=== PATIENT | female | born 1985 | race Caucasian/White ===

== ENCOUNTER 2024-09-09 13:04 | Emergency (ER) | payer BC, SELFPAY ==
[2024-09-09] VITALS (11 sets, daily range): BP systolic 103–129; BP diastolic 69–83; PULSE 61–80; RESP 5–17; TEMP 37.3; O2SAT 95–100; BMI 23.9
--- OUTSIDE RECORDS SUMMARY | 2024-09-09 13:06 | XMS_ITS | Clinical Summary ---
Author Organization [facility] Address [address] [place] [address]. [place] [address] Care Team Providers Care Director Index Name Role Phone Neha Major MD Primary Care Provider [phone] Allergies Active Allergy Reactions Criticality Noted Date Comments Doxycycline Anaphylaxis High 01/17/2016 Shellfish Allergy Anaphylaxis,Itching High 6 Shellfish-Derived Products Anaphylaxis,Itching High 01/27/2016 Medications ferrous gluconate (FERGON) 324 (38 FE) MG tabletIndications: S/P primary low transverse Take 1 tablet (324 mg) by mouth daily (with breakfast) 100 tablet 1 8 Active Vit-DSS-Fe Fum-FA ( 19) 29-1 MG TABSIndications:S/ P primary low transverse Take 1 tablet by mouth daily 100 tablet 1 8 Active norethindrone (MICRONOR) 0.35 MG per tabletIndications: Encounter for initial prescription of contraceptive pills Take 1 tablet (0.35 mg) by mouth daily 28 tablet 2 8 Active Active Problems Problem Noted Date Diagnosed Date 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 Social History Tobacco Use Types Packs/Day Years Used Date Smoking Tobacco: Never Smokeless Tobacco: Never Alcohol Use Standard Drinks/Week Comments No 0 (1 standard drink = 0.6 oz pur e alcohol) PHQ-2 Answer Date Recorded PHQ-2 Score 1 05/30/2018 Adolescent Education Answer Date Record ed Getting School Help Needed Not on file 02/10 Comments No Sex and Gender Information Value Date Recorded Sex Assigned at Not on file Legal Sex Female 6:36 AM CDT Gender Identity Not on file Sexual Orientation Not on file 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 Not on file Not on file Last Filed Vital Signs Vital Sign Reading Time Taken Comments Blood Pressure 104/72 08/23/2017 9:40 AM CDT Pulse 76 01/17/2016 7:50 PM CDT Temperature 37.2 C (99 F) 07/16/2017 1:21 PM FIELD SPECIALIST Respiratory Rate 18 07/16/2017 10:51 AM FIELD SPECIALIST Oxygen Saturation 100% 01/17/2016 7:50 PM CDT Inhaled Oxygen Concentration - - Weight 62.1 kg (137 lb) 08/23/2017 9:40 AM CDT Height 160 cm (5' 3) 08/23/2017 9:40 AM CDT Body Mass Index 24.27 08/23/2017 9:40 AM CDT Plan of Treatment Not on file Insurance INDIVIDUAL INDIVIDUAL Care Teams Director Index Relationship Specialty Start Date End Date Neha Major MD [address] [place] [address] PCP - General program or project administrator 07/13/17
--- OUTSIDE RECORDS SUMMARY | 2024-09-09 13:06 | XMS_ITS | Encounter Summary ---
Author Organization [facility] Address [address] [place] [address]. [place] [address] Care Team Providers Care Railway Shunter Name Role Phone Skylar Salomon CNP Primary Care Provider [phone] Neha Major MD Primary Care Provider [phone] Encounter Details Date Type Department Care Team (Late st Contact Info) Description 03/01/2017 PRE VISIT [facility] [address] [place] [id number] Dorota Carcamo, LEAH Social History Tobacco Use Types Packs/Day Years Used Date Smoking Tobacco: Never Alcohol Use Standard Drinks/Week Comments Not Asked 0 (1 standard drink = 0.6 oz pur e alcohol) Comments Yes Sex and Gender Information Value Date Recorded Sex Assigned at Not on file Legal Sex Female 6:36 AM CDT Gender Identity Not on file Sexual Orientation Not on file documented as of this encounter Plan of Treatment Not on file documented as of this encounter Visit Diagnoses Not on filedocumented in this encounter Care Teams Railway Shunter Relationship Specialty Start Date End Date Skylar Salomon CNP PCP - General 01/17/16 07/12/17 Neha Major MD [address] [place] [address] PCP - General culinary manager 07/13/17 documented as of this encounter
--- OUTSIDE RECORDS SUMMARY | 2024-09-09 13:07 | XMS_ITS | Clinical Summary ---
Author Organization [facility] Address [address] [place] [address] Care Team Providers Care Glove Turner And Former Automatic Name Role Phone Skylar Salomon Diana ABREU, EMBROIDERY WORKER Primary Care Provider Source Comments You are receiving this document as you are listed as the primary care provider,follow-up provider, or the patient has been referred to you for consultation.This is in compliance with the Medicare and[facility] EHR Incentive Program,which states Providers who transition their patient to another setting of careor provider of care or refers their patient to another provider of care shouldprovide summary care record for each transition of care or referral. [employer] Allergies Active Allergy Reactions Criticality Noted Date Comments Doxycycline Breathing Difficulty High 10/16/2015 Shellfish Allergy Anaphylaxis,Itching High 6 Medications ALBUterol sulfate HFA 108 (90 BASE) MCG/ACT inhaler Inhale 2 Puffs as needed for Wheezing (Inhale 2 puffs as needed for Wheezing.). Reported on 06/15/2016 10/16/2015 Active fluticasone (FLONASE) 50 MCG/ACT nasal solutionIndicat ions:Hyperprola ctinemia (HRC),PCOS (polycystic ovarian syndrome) (HRC) 1 Etta. 06/08/2016 Act sinan spironolactone (ALDACTONE) 50 MG tabletIndicatio ns:PCOS (polycystic ovarian syndrome) (HRC),Hyperprol actinemia (HRC) Take 1 Tab by mouth daily. 90 Tab 3 06/21/2016 Active Norgestimate-Et h Estradiol (SPRINTEC 28) 0.25-35 MG-MCG tablet Take 1 Tab by mouth daily. 90 Tab 3 06/22/2016 Active Active Problems Problem Noted Date Diagnosed Date Hyperprolactinemia 04/07/2016 PCOS (polycystic ovarian syndrome) 04/07/2016 Family History Medical History Relation Name Comments Alzheimer's Maternal Grandfather Diabetes Maternal Grandmother High Cholesterol Maternal Grandmother Cancer Paternal Grandfather Spont Abortions Sister 1 Relation Name Status Comments Father Alive Mother Alive Brother 1 Alive Brother 2 Alive Maternal Grandfather Alive Maternal Grandmother Alive Paternal Grandfather Paternal Grandmother Alive Sister 1 Alive Sister 2 Alive Social History Tobacco Use Types Packs/Day Years Used Date Smoking Tobacco: Never Smokeless Tobacco: Never Alcohol Use Standard Drinks/Week Comments Yes 2 (1 standard drink = 0.6 oz pur e alcohol) Comments No Sex and Gender Information Value Date Recorded Sex Assigned at Not on file Legal Sex Female 1:06 PM CDT Gender Identity Not on file Sexual Orientation Not on file 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 Not on file Not on file Last Filed Vital Signs Vital Sign Reading Time Taken Comments Blood Pressure 116/78 06/15/2016 11:12 AM CASINO ASSISTANT MANAGER Pulse 80 06/15/2016 11:12 AM CASINO ASSISTANT MANAGER Temperature 36.8 C (98.3 F) 04/06/2016 8:27 AM CASINO ASSISTANT MANAGER Respiratory Rate 18 04/06/2016 8:27 AM CASINO ASSISTANT MANAGER Oxygen Saturation 96% 04/06/2016 8:27 AM CASINO ASSISTANT MANAGER Inhaled Oxygen Concentration - - Weight 54.5 kg (120 lb 3.2 oz) 06/15/2016 11:12 AM CASINO ASSISTANT MANAGER Height 160 cm (5' 3) 06/15/2016 11:12 AM CASINO ASSISTANT MANAGER Body Mass Index 21.29 06/15/2016 11:12 AM CASINO ASSISTANT MANAGER Plan of Treatment Health Maintenance Due Date Last Done Comments Hep C Screening (Preventive Services) 1985 Adult Preventive Visit 01/20/2004 DTaP/Tdap/Td Vaccine (1 - Tdap) 2005 HepB Vaccine (1) 2005 Cervical Cancer Screening 11/17/2018 11/18/2015 COVID-19 Vaccine (1 - 2023-2 5 season) 2024 Influenza Vaccine (#1) 2024 Zoster/Shingles Vaccine (1 of 2) 01/20/2036 HIV Screening (Preventive Services) Completed 10/09/2019 HPV Vaccine Aged Out No longer eligi ble based on patient's age to complete this topic HepA Vaccine Aged Out No longer eligi ble based on patient's age to complete this topic Hib Vaccine Aged Out No longer eligi ble based on patient's age to complete this topic IPV (Polio) Vaccine Aged Out No longe r eligible based on patient's age to complete this topic MCV4 Vaccine Aged Out No longer eligi ble based on patient's age to complete this topic Meningococcal B Vaccine Aged Out No l onger eligible based on patient's age to complete this topic Pneumococcal Vaccine Aged Out No long er eligible based on patient's age to complete this topic Procedures Procedure Name Priority Date/Time Associated Diagnosis Comments ANATOMICAL PATH LIQUID BASED Routine 11/18/2015 11:07 AM CDT from Last 3 Months or Most Recently Relevant to Health Maintenance Results * Pap Smear (11/18/2015 11:07 AM CDT) 11/18/2015 11:0 7 AM CDT Narrative HP CONVERSION - 11/20/2015 5:34 PM CDT FINAL GYNECOLOGICAL CYTOLOGY REPORT Pathology #: [id number] Date Obtained: 11/18/2015 Date Received: 11/19/2015 INTERPRETATION/RESULTS: Negative for Intraepithelial Lesion or Malignancy. SPECIMEN ADEQUACY: Satisfactory for Evaluation. Endocervical cells/transformation zone component present. Verified on 11/20/2015 by MINIE BACCAM, CT(ASCP) (electronic signature) CLINICAL NOTES: Abnormal bleeding: No, LMP: 10/29/15, Menstrual status: None Apply, Current form of therapy: None apply LIQUID BASED PAP SMEAR SPECIMEN TYPE: ROUTINE CERVICAL PAP TEST PLEASE NOTE: The pap smear is a screening test designed to aid in the detection of cervical cancer and its precursor lesions. It is not a diagnostic procedure and should not be used as the sole means of detecting cervical cancer. Both false-positive and false-negative reports may occur. Performed at [facility], [address] [place] [id number] Lachelle Stearns MD LAB_1 Final Re sult HP CONVERSION from Last 3 Months or Most Recently Relevant to Health Maintenance Insurance HP FULLY INSURED * Guarantor: Cleo Alegre Account Type Relation to Patient Date of Phone Billing Address Personal/Family Self 1985 [id number] [place] [address] [employer] Care Teams Glove Turner And Former Automatic Relationship Specialty Start Date End Date Skylar Salomon, ROUGH PATCHER, EMBROIDERY WORKER [id number] [address] [place] [address] PCP - General 10/29/15
--- OUTSIDE RECORDS SUMMARY | 2024-09-09 13:07 | XMS_ITS | Clinical Summary ---
Author Organization [employer] [facility] [employer] Address [address] [place] [id number] Care Team Providers Care Site Physician Name Role Phone Anisa Zaldivar MD Primary Care Provider Allergies Active Allergy Reactions Criticality Noted Date Comments Blood-Group Specific Substance Other - Describe In Comment Field 06/02/2020 Patient has Probable Passive D, Blood product orders may be delayed. Draw one red top and 2 purple top tubes for all Type and Screen/Type and Crossmatch orders. Doxycycline Shortness Of Breath Low 03/09/2015 Shellfish Containing Products Anaphylaxis,Itching High 01/27/2016 Medications Blood Pressure MonitorIndicatio ns:Pre-eclampsia in period (HC) Take blood pressure twice daily. Call if your blood pressure is above 150/100 (either number). 1 Device 06/09/19 21 Active tretinoin (RETIN-A) 0.025 % 0.025 % creamIndications :Acne vulgaris Apply topically to affected area(s) at bedtime. 135 g 3 06/01/19 24 Active albuterol HFA (PRO-AIR; VENTOLIN; PROVENTIL) 90 mcg/actuation inhalerIndicatio ns:Mild intermittent asthma without complication (HC) Inhale 2 Puffs by mouth every 4 hours if needed for Shortness Of Breath or Wheezing. 2 Each 1 01/12/20 24 Active SUMAtriptan (IMITREX) 50 mg tabletIndication s:Migraine without status migrainosus, not intractable, unspecified migraine type Take 1 Tablet (50 mg) by mouth 2 times daily if needed for Migraine. Give at minimum 2hrs apart. Max Dose: 200mg per 24hrs. 10 Tablet 2 01/12/20 24 Active lidocaine/hydroc ortisone ac (lidocaine HCl-hydrocortiso n ac) 3 %-2.5 % (7 gram) gelIndications:A nal fissure Insert rectally two times daily. 14 g 01/12/20 24 Active docosahexaenoic acid/epa (FISH OIL ORAL) Take by mouth once daily. Active ferrous sulfate (IRON ORAL) Take by mouth once daily. Active medication order composer Take by mouth once daily. Vit D Active cyanocobalamin, vitamin B-12, (VITAMIN B-12 ORAL) Take by mouth once daily. Active MELATONIN ORAL Take by mouth once daily. 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 Max acetaminophen dose: 4000mg in 24 hrs. 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 Anxiety 03/30/2019 Mild intermittent asthma without complication Resolved Problems Problem Noted Date Diagnosed Date Resolved Date Endometritis following delivery 06/03/2020 01/12/2024 delivery delivered 06/02/2020 01/12/2024 [facility] Supervision of high-risk 01/06/2020 01/12/2024 Overview (01/06/2020): MPP CONSULTATION ON 01/09/20 REASON FOR CONSULT: Diagnosis pituitary adenoma What would you like to discuss or review? management and level 2 ultrasound Comprehensive Perinatology Services:(select all that apply) testing/delivery recommendations Consult on risks/management TODAY'S APPOINTMENT: MD Consultation & L2 ultrasound exam PRIMARY DIAGNOSIS: 34 y.o. Estimated Date of Delivery: 06/02/20 Micro-pituitary Adenoma (see brain MRI below)--dx by amenorrhea, infertility, elevated prolactin and brain MRI. No problems with first child H/O C/S for placenta previa at 91a8w--6/2018. (baby went to NICU for respiratory issues) Pt desires TOLAC, will need to transfer to provider that does H/O viral pericarditis during first (can't find records) Anxiety (on Zoloft) BMI = 24 LAST GROWTH: Next: 01/09/20 10/16/19 (6w3d) REFERRING PHYSICIAN/PHONE/LAST UPDATE: Dr. Anisa Zaldivar, [facility] [phone] Primary MD approves scheduling of recommended ultrasounds/testing: Yes SPECIALISTS/CONSULTS: Tailings Worker: Dr. Kylah Weber, [facility] 05/2016 Include: Specialty MD Clinic Name Phone# [place] and ADD TO TREATMENT TEAM CARE COORDINATION: GENETICS: none PROCEDURES: Brain MRI done 12/02/15 (in Care Everywhere): Tiny focal area of decreased enhancement near the pars intermedia may reflect a tiny pars intermedia cyst or mild pituitary glandular heterogeneity. A tiny microadenoma could have this appearance but is considered less likely. PERTINENT LABS: Labs reviewed? Yes Normal? Yes A Neg PERTINENT MEDS: albuterol, folic acid, PNV, zoloft Preferred delivery location: [place] (wants to do TOLAC) PLAN OF CARE: 11/13/2019 01/12/2024 Overview (02/26/2020): Estimated Date of Delivery: 06/02/20 Patient's last menstrual period was 08/27/2019 (exact date). Last Tdap- 05/30/2017 Last Flu vaccine- 02/05/2019 Glucose (GTT) result- Component Latest Ref Rng & Units 02/25/2020 GLUCOSE,GESTATIONAL 65 - 139 mg/dL 98 Component Latest Ref Rng & Units 02/25/2020 HEMOGLOBIN 12.0 - 16.0 g/dL 12.3 Component Latest Ref Rng & Units 02/25/2020 ANTIBODY SCREEN Negative Negative SPECIMEN EXPIRATION DATE/TIME 02/28/20 23:59 TREPONEMA PALLIDUM Negative Negative Allergies Allergen Reactions Shellfish Containing Products Anaphylaxis and Itching Doxycycline Shortness Of Breath OB History Para Term AB Living 3 1 0 1 1 1 SAB TAB Ectopic Multiple Live Births 1 0 0 0 1 # Outcome Date GA Lbr Ritesh/2nd Weight Sex Delivery Anes PTL Lv 3 Current 2 M CS-LTranv Complications: Placenta Previa 1 SAB 7w0d N Create lab flowsheet for OB labs- Component Latest Ref Rng & Units 10/09/2019 10/09/2019 10/09/2019 8:54 AM 8:54 AM 8:54 AM ANTIBODY SCREEN Negative Negative SPECIMEN EXPIRATION DATE/TIME 10/12/19 23:59 CHLAMYDIA PROBE N GONORRHOEAE PROBE HEMOGLOBIN 12.0 - 16.0 g/dL 12.9 MCV 80 - 100 fL 84 PLATELET COUNT 140 - 440 thou/cu mm 164 MPV 6.5 - 11.0 fL 10.5 RUBELLA IGG ANTIBODY Positive 3.23 HIV-1/HIV-2 ANTIBODY Non-Reactive Non-Reactive HEPATITIS C ANTIBODY Non-Reactive Non-Reactive TREPONEMA PALLIDUM Negative Negative HBSAG Nonreactive Nonreactive ABORH A Rh Negative Component Latest Ref Rng & Units 10/09/2019 8:55 AM ANTIBODY SCREEN Negative SPECIMEN EXPIRATION DATE/TIME CHLAMYDIA PROBE Negative N GONORRHOEAE PROBE Negative HEMOGLOBIN 12.0 - 16.0 g/dL MCV 80 - 100 fL PLATELET COUNT 140 - 440 thou/cu mm MPV 6.5 - 11.0 fL RUBELLA IGG ANTIBODY HIV-1/HIV-2 ANTIBODY Non-Reactive HEPATITIS C ANTIBODY Non-Reactive TREPONEMA PALLIDUM Negative HBSAG Nonreactive ABORH Past Medical History: . Date Asthma Female infertility Irregular menstrual cycle PCOS (polycystic ovarian syndrome) Pericarditis during Pituitary adenoma (HC) Placenta previa hemorrhage delivery at 36 weeks by for complete placenta previa Varicella Past Surgical History: . Laterality Date SECTION HERNIA REPAIR hernis repair N/A 02/06/2016 umbilical hernia wisdom teeth removal 2003 No data on file. Problems (from 10/09/19 to present) No problems associated with this episode. Cinthia Todd, [facility].....11/13/2019 8:43 AM Supervision of other normal 10/09/2019 01/12/2024 Overview (05/21/2020): Provider: Ronaldo Kingsley MD. Transferred at [address] Anisa Zaldivar [facility] due to wanting TOLAC Grant, Son Rogerio (Jun 2017) Hx of at 36 weeks for previa. Traumatic experience with child transferred to NICU from [facility] and her being without her baby or partner. Had a delayed hemorrhage - did not need blood transfusion but did have a low hgb. hx of pituitary microadenoma and high PRL- saw MPP, no change to management Hx of viral pericarditis with 1st . Saw MPP for consult this . Rh negative. Rhogam given 03/19/2020 ( likely Rh negative too) Anxiety: on Zoloft Boy - wanting circ Peds - Dr. Dominga Johns Wanting IUD Pain management: Open to options. Ok with an epidural May want something for anxiety in labor- discuss hydroxyzine TOLAC consult with Dr. Freeman. If not delivered by 40 weeks will plan repeat c- section. Patient not wanting to be induced. History of 10/09/2019 024 History of hemorr walt, currently 10/09/2019 01/12/2024 History of placenta previa 10/09/2019 1 07/08/2019 History of delivery 01/12/2024 Failed trial of labor 2023 Pre-eclampsia in period 01/12/2024 Encounters Date Type Department Care Team Description 09/09/2024 Nurse Triage [facility] [address] [place] [address] Anisa Zaldivar MD Chest Pain from Last 3 Months Immunizations Immunization Administration Dates Next Due Influenza, IIV4 06/14/2017 Influenza, IIV4 (=>6mos) MDV 02/05/2019 Meningococcal Vaccine (Menactra) 12/21/2004 Td (Age >=7 Years) 11/19/1999 Tdap 05/30/2017 Family History Medical History Relation Name Comments Heart Disease Father CHF Dementia Maternal Grandfather Diabetes Maternal Grandmother Skin cancer Maternal Grandmother Good Health Mother Diabetes Other Skin cancer Other Maternal aunt - from skin cancer Cancer Paternal Grandfather esophag eal Cancer-breast Paternal Grandmother Skin cancer Paternal Grandmother Good Health Sister 1 endometriosis-2 3yo Relation Name Status Comments Brother 1 Alive Brother 2 Alive Father Alive Maternal Grandfather Alive Maternal Grandmother Alive Mother Alive Other Paternal Grandfather Paternal Grandmother Alive Sister 1 Alive Sister 2 Alive Son Alive Social History Tobacco Use Types Packs/Day Years Used Date Smoking Tobacco: Never Smokeless Tobacco: Never Tobacco Cessation:Counseling Given: Yes Alcohol Use Standard Drinks/Week Comments Yes 0 (1 standard drink = 0.6 oz pur e alcohol) 2 drinks per week PHQ-2 Answer Date Recorded PHQ-2 TOTAL SCORE 0 03/10/2022 Social Connections Answer Date Recorded Do you often feel lonely or isolated from those around you? 0 10/11/2023 Financial Resource Strain Answer Date R ecorded Difficulty of Paying Living Expenses 3 10/11/2023 Difficulty of Paying Living Expenses Not on file 10/11/2023 Food Insecurity Answer Date Recorded Do you worry your food will run out before you are able to buy more? 1 10/11/2023 Transportation Needs Answer Date Record ed Does lack of transportation keep you from medica l appointments? 1 10/11/2023 Does lack of transportation keep you from work, meetings or getting things that you need? 1 10/11/2023 Housing Stability Answer Date Recorded What is your housing situation today? 1 10/11/2023 Utilities Answer Date Recorded Do you have trouble paying f or utilities (for example, heat, electricity, water, phone)? 1 10/11/2023 Comments No Sex and Gender Information Value Date Recorded Sex Assigned at Not on file Legal Sex Female 8:56 AM CDT Gender Identity Not on file Sexual Orientation Not on file Occupation Industry Job Start Date Job End Date Not on file Not on file Not on file Not on file Not on file Not on file Not on file Not on file Obstetrics History Para Term AB IAB SAB Ectopic Multiple Livin g Live Births 4 2 1 1 2 0 2 0 0 2 2 Date Outcome GA Total Labor Labor/2nd/3rd Weight Sex Type Anes PTL Carol A1 A5 Name Clin 09/2011 SAB 7w0 d N Demis e Delivery Location:[facility] 06/2017 36w 4d 2.98 kg (6 lb 9 oz) M CS-LTr anv Livin g Complications:Placenta Previ a Delivery Location:[facility] Comments:placenta prev ia, C/S, PPH, baby transferred to NICU d/t respiratory issues for two weeks 04/2019 SAB SPONTA NEOUS Demis e 05/2020 Term M CS-LTr anv Livin g Comments G2: boy (Rogerio), previa, CS. N ICU x 2 weeks for RDS G4: boy (Nelida) Second CS was 2020 Last Filed Vital Signs Vital Sign Reading Time Taken Comments Blood Pressure 101/60 02/02/2024 11:19 AM CDT Pulse 71 02/02/2024 11:19 AM CDT Temperature 36.6 C (97.8 F) 02/02/2024 10:20 AM CDT Respiratory Rate 16 02/02/2024 11:1 9 AM CDT Oxygen Saturation 97% 02/02/2024 11: 19 AM CDT Inhaled Oxygen Concentration - - Weight 60.7 kg (133 lb 12.8 oz) 02/02/2024 8:00 AM CDT Height 160 cm (5' 3) 02/02/2024 8:00 AM CDT Body Mass Index 23.7 02/02/2024 8:00 AM CDT Plan of Treatment Health Maintenance Due Date Last Done Comments Depression screening for age 12+ 03/11/2023 03/11/2022, 03/10/2022, 08/07/2020, Additional history exists COVID-19 vaccine series ( season) 2024 BMI (ht and wt on same day) for age 18+ 01/11/2025 01/12/2024, 06/01/2023, 03/10/2022, Additional history exists Influenza Vaccine (Season Ended) 2025 02/05/2019, 06/14/2017 Pap test for age 21-65 08/07/2025 08/07/2020, 2020 Tetanus booster 05/30/2027 05/30/2017, 11/19/1999 Tdap Completed 05/30/2017 HIV for age 15-65 Completed 10/09/2019 Hepatitis C screening for age 18-79 Completed 10/09/2019 Pneumococcal series for age 6-49 Aged Out No longer eligible based on patient's age to complete this topic Procedures Procedure Name Priority Date/Time Associated Diagnosis Comments TEST PREPARER THIN PREP PAP SCREEN IMAGED Routine 08/07/2020 2:45 PM CDT Screening for cervical cancer ANTI HIV 1/2 Routine 10/09/2019 8:54 AM CDT Encounter for supervision of other normal in first trimester (HC) ANTI HCV Routine 10/09/2019 8:54 AM CDT Encounter for supervision of other normal in first trimester (HC) from Last 3 Months or Most Recently Relevant to Health Maintenance Results * TEST PREPARER THIN PREP PAP SCREEN IMAGED [[id number]] (08/07/2020 2:45 PM CDT) Case Report Gynecologic Cytology Report Case: [id number] Authorizing Provider: Anisa Zaldivar MD Collected: 08/07/2020 1445 Ordering Location: [facility] Received: 08/07/2020 1525 Clinic First Screen: Christiane Stevens Specimen: TEST PREPARER ThinPrep Vial Screening, Cervical 08/19/2020 3:37 PM CDT [facility] INTERPRETATION/ RESULT NEGATIVE FOR INTRAEPITHELIAL LESION OR MALIGNANCY (NIL) (none) 08/19/2020 3:37 PM CDT [facility] at 1537 CDT SPECIMEN ADEQUACY Satisfactory for evaluation Endocervical component present 08/19/2020 3:37 PM CDT [facility] HPV REQUEST HPV and PAP 08/19/2020 3:37 PM CDT [facility] Date of LMP n/a 08/19/2020 3:37 PM CDT [facility] Last Pap Date unknown 08/19/2020 3:37 PM CDT [facility] Last Pap Result First Pap/Unknown 3:37 PM CDT [facility] Abnormal Pap or [place] Bx in last 5 years No 08/19/2020 3:37 PM CDT [facility] Menstrual Status 08/19/2020 3:37 PM CDT [facility] [place] Bx Done Today No 08/19/2020 3:37 PM CDT [facility] Additional Information None given 08/19/2020 3:37 PM CDT [facility] Comment: Cytology is screened at [facility] - [address], [place] [address] [facility] - [address], [place] [address] and [facility] - [address] [place] [address] [facility] - [address], [place] [address] Automated Review Successful 08/19/2020 3:37 PM CDT [facility] Comment:Specimen processed s uccessfully by automated rnfa device, ThinPrep Imaging System, [employer] ANCILLARY TESTING TEST PREPARER HPV Ordered, Please see separate report 08/19/2020 3:37 PM CDT [facility] Note The pap test is a screening technique, not a diagnostic procedure. It is used primarily to screen for squamous cancers and precursor lesions. Published studies have shown that it is subject to both false negative and false positive results. The pap test should not be used as the sole means to diagnose or exclude pre-malignant and malignant lesions. 08/19/2020 3:37 PM CDT [facility] Other (Cervical) Non-Blood / Unknown 08/07/2020 2:45 PM CDT 08/07/2020 3:25 PM CDT us Anisa Zaldivar MD PATHOLOGY/CYTOLOGY Final Re sult [facility] [address] [place] [address], [place] * HEPATITIS C [[id number]] (10/09/2019 8:54 AM CDT) HEPATITIS C ANTIBODY Non-React sinan Non-React sinan 10/09/2019 3:11 PM CDT [facility] Comment:Antibodies to HCV no t detected; does not exclude the possibility of exposure to HCV. Blood BLOOD SPECIMEN / Unknown Venipuncture / Unknown 10/09/2019 8:54 AM CDT 10/09/2019 8:54 AM CDT us Anisa Zaldivar MD SEND OUTS Final Resul t [facility] [address] [place] [address], * ANTI HIV 1/2 [92125.0] (10/09/2019 8:54 AM CDT) HIV-1/HIV-2 ANTIBODY Non-Reacti ve Non-Reacti ve 10/09/2019 3:14 PM CDT [facility] Comment:HIV-1 p24 and HIV-1/ HIV-2 Ab not detected. Blood BLOOD SPECIMEN / Unknown Venipuncture / Unknown 10/09/2019 8:54 AM CDT 10/09/2019 8:54 AM CDT us Anisa Zaldivar MD SEND OUTS Final Resul t [facility] [address] [place] [address], from Last 3 Months or Most Recently Relevant to Health Maintenance Insurance [employer] [facility] Advance Directives * Full Code (Latest Code Status on File) Date Activated Date Inactivated Comments 02/02/2024 7:47 AM 02/02/2024 1:33 PM Question Answer Comments Code Status Discussion: Reviewed Preferences * Full Code Date Activated Date Inactivated Comments 06/05/2020 9:22 PM 06/09/2020 2:40 PM Question Answer Comments Code Status Discussion: Not Discussed * Full Code Date Activated Date Inactivated Comments 06/01/2020 2:50 PM 06/05/2020 1:13 PM Question Answer Comments Code Status Discussion: Not Discussed * Full Code Date Activated Date Inactivated Comments 01/29/2016 8:36 AM 01/29/2016 2:37 PM Care Teams Site Physician Relationship Specialty Start Date End Date Anisa Zaldivar MD [address] [place] [address] PCP - General Family Practice 06/11/20
--- OUTSIDE RECORDS SUMMARY | 2024-09-09 13:07 | XMS_ITS | Encounter Summary ---
Author Organization [facility] Address [address] [place] [address]. [place] [address] Care Team Providers Care Electrical Sign Wirer Helper Name Role Phone Skylar Salomon CNP Primary Care Provider [phone] Neha Major MD Primary Care Provider Reason for Referral * - Closed Specialty Diagnoses / Procedures Referred By Thomas t Referred To Contact Diagnoses related condition, unspecified trimester Janes August Phone: tel: fax: Referral ID Status Reason Start Date Expiration Date Visits Re quested Visits Authorized [id number] Closed 12/23/2016 12/23/2017 1 1 Question Answer MFM Location [facility] JESSIE 08/05/2017 Ultrasound NONE US PROC Chorionic Villus Sampling(10.0-12.6 weeks GA)*MUST request Genetic Counseling MFM Issue OTHER (enter details in Comments) - Pituitary adenoma, travel to [place] risk area 5 months ago MFM Consultation (unrelated to Ultrasound findings) Yes (enter details in Comments) - Pituitary adenoma, travel to [place] risk area 5 months ago Genetic Counseling Consultation: No fax [facility] Dr Dorita Marrero [phone] Comments >> Patient may proceed with recommendations for further testing as directed by the Maternal Medicine Specialist >> >> If requesting Echo: MFM will determine appropriate location for exam due to indication. >> If requesting Lung Maturity Amnio: If results indicate lung maturity, induction or C/S is recommended within 36 hours. Please schedule accordingly. Dear Patient: Please be aware that coverage of these services is subject to the terms and limitations of your health insurance plan. Call member services at your health plan with any benefit or coverage questions. Please bring the following to your appointment: >> Any x-rays, CTs or MRIs which have been performed. Contact the facility where they were done to arrange for picker / packer prior to your scheduled appointment. Any new CT, MRI or other procedures ordered by your specialist must be performed at a [facility] facility or coordinated by your clinic's referral office. >> List of current medications >> This referral request >> Any documents/labs given to you for this referral Encounter Details Date Type Department Care Team (Late st Contact Info) Description 12/23/2016 Orders Only [facility] [place] [address] [facility] [address] [place] [id number] JanesAugust [address] [place] [address] related condition, unspecified trimester (Primary Dx) Social History Tobacco Use Types Packs/Day Years Used Date Smoking Tobacco: Never Alcohol Use Standard Drinks/Week Comments Not Asked 0 (1 standard drink = 0.6 oz pur e alcohol) Comments Unknown Sex and Gender Information Value Date Recorded Sex Assigned at Not on file Legal Sex Female 6:36 AM CDT Gender Identity Not on file Sexual Orientation Not on file documented as of this encounter Plan of Treatment Scheduled Referrals Name Type Priority Associated Diagnoses Orde r Schedule [facility] MED CTR REFERRAL- Referral Routine related condition, unspecified trimester Ordered: 12/23/2016 documented as of this encounter Visit Diagnoses Diagnosis related condition, unspecified trimester- Primary documented in this encounter Care Teams Electrical Sign Wirer Helper Relationship Specialty Start Date End Date Skylar Salomon CNP PCP - General 01/17/16 07/12/17 Neha Major MD [address] [place] [address] PCP - General social worker clinical 07/13/17 documented as of this encounter
--- OUTSIDE RECORDS SUMMARY | 2024-09-09 13:07 | XMS_ITS | Encounter Summary ---
Author Organization [facility] Address [address] [place] [address]. [place] [address] Care Team Providers Care Equity Research Associate Name Role Phone Skylar Salomon CNP Primary Care Provider [phone] Neha Major MD Primary Care Provider [phone] Encounter Details Date Type Department Care Team (Late st Contact Info) Description 12/26/2016 Care Coordination [facility] [address] [address] Stephanie Mcclellan RN Social History Tobacco Use Types Packs/Day Years [...] on filedocumented in this encounter Care Teams Equity Research Associate Relationship Specialty Start Date End Date Skylar Salomon CNP PCP - General 01/17/16 07/12/17 Neha Major MD [address] [place] [address] PCP - General loan servicing specialist 07/13/17 documented as of this encounter
--- NOTE | 2024-09-09 13:32 | ED_ITS ---
HPI - Chest Pain General Time Seen by Provider: 13:32 Date Seen: 09/09/24 Chief Complaint: Chest Pain Stated Complaint: pain in chest and numbness in left arm Time Seen by Provider: 09/09/24 13:24 Source: patient and RN notes reviewed Mode of arrival: ambulatory Limitations: no limitations History of Present Illness HPI narrative: This 39-year-old female is coming in with episodes of sharp stabbing pain in her chest. These with been happening maybe 2-3 weeks, intensifying and worsening. These are coming on without any rhyme or reason, not positional or exertional in nature. When they happen it is like a sharp stabbing in her chest, she cannot breathe. It goes away quickly and breathing is then not painful. She was sick about a month ago, states she was really sick with an upper respiratory illness, thought it was COVID but did not test because she works from home. She is still coughing some. No fevers or chills. She had pericarditis with her 1st and preeclampsia with her 2nd . She just completed her menstrual cycle yesterday, is not on any contraceptives. Earlier this week she noted a numb feeling along her left medial calf, noticed a bluish vein that was nontender in the area. This went away. She had an episode of this chest discomfort today and afterwards her left anterior bicep area of skin just felt numb. It is not all the way down the arm, there is no pain. She is still able to use the arm. This is different than her pericarditis, noted that she had positional symptoms with the pericarditis, worsened with lying down, there is no really positional changes with current symptoms. With the pericarditis it was there more constant as well. Related Data Home Medications ?Medication ?Instructions ?Recorded ?Confirmed No Known Home Medications 09/09/24 09/09/24 Allergies Allergy/AdvReac Type Severity Reaction Status Date / Time doxycycline Allergy Intermediate Verified 09/09/24 13:12 Review of Systems Status of ROS Reports: 6 or more systems reviewed and unremarkable except as noted in History and below [facility] Medical History (Updated 09/09/24 @ 15:20 by Eneida Harley MD) Pericarditis ?I31.9 - Disease of pericardium, unspecified (ICD-10) Preeclampsia ?O14.90 - Unspecified pre-eclampsia, unspecified trimester (ICD-10) Social History Smoking Status: Never smoker Do you use any of these nicotine containing products: None How often do you have a drink containing alcohol: monthly or less AUDIT-C Alcohol total score: 1 Non-prescribed substance use: denies use Exam Const Vital Signs, click to edit/add: Vital Signs - 24 hr 09/09/24 13:06 09/09/24 13:37 09/09/24 13:45 Temperature 99.2 F Pulse Rate 75 67 Pulse Rate [Pulse Oximeter] 80 Respiratory Rate 16 15 10 L Blood Pressure Blood Pressure [Right Upper Arm] 129/83 Pulse Oximetry 99 98 95 Oxygen Delivery Method Room Air 09/09/24 14:00 09/09/24 14:02 09/09/24 14:14 Temperature Pulse Rate 65 63 Pulse Rate [Pulse Oximeter] Respiratory Rate 11 L 10 L Blood Pressure 116/76 Blood Pressure [Right Upper Arm] Pulse Oximetry 98 98 99 Oxygen Delivery Method 09/09/24 14:15 09/09/24 14:18 Temperature Pulse Rate 61 Pulse Rate [Pulse Oximeter] Respiratory Rate 5 L 12 Blood Pressure Blood Pressure [Right Upper Arm] Pulse Oximetry 98 Oxygen Delivery Method This 39-year-old female is alert, interactive, no apparent distress, sclera clear, extraocular movements intact, symmetrical facial function. Speech is normal, breathing easy on room air. Neck supple, no adenopathy, no jugular venous distension. Lungs are clear, good air entry, no wheezing crackles, no tachypnea, no accessory muscle use. CV regular rate and rhythm, no murmur, normal S1-S2, no S3-S4. At 2 soft, nontender, nondistended, no organomegaly, no rebound or guarding, no masses. She has no lower extremity edema, did visualize her left calf and see no vascular changes. She has symmetrical upper extremities strength, normal light touch sensation, full range of motion of her arms. No motor changes, no dysmetria of her upper extremities. Documenting provider has reviewed patient's vital signs: yes Course Course ED Course: This 39-year-old female is coming in with pleuritic fleeting sharp chest pain. Will have her on cardiac monitoring, pulse oximetry, get EKG, look at D-dimer not for thromboembolic disease but for other possible etiologies. Will look at a portable chest x-ray. Will look at troponin. This does not seem to be consistent with myocarditis or pericarditis but will consider this. She is PERC negative. Would consider NSAIDs for her but would like to see some labs back 1st. She is not having pain now this pain is episodic and fleeting. Reevaluation(s) Time of Reevaluation #1: 15:16 Reevaluation #1: Reviewed with patient that her labs are normal, EKG is not supportive of any diagnosis of pericarditis, troponin normal, D-dimer normal, inflammatory markers normal. Her chest x-ray is normal. This does not sound consistent with esophageal spasms, not consistent enough that I would call it pleurisy. There does not seem to be any change on EKG or troponin nor is the history seem to be compatible with vascular issues like ischemic heart disease, myocarditis, dissection. None of her spells were witnessed here. Her arm is feeling better, no chest pain here. With fleeting episodic chest pain for 3 weeks I do not feel that we need to do a 2nd troponin. Have offered to look at chest CT imaging with IV contrast looking at vasculature but she is declining at this time. We discussed a trial of scheduled NSAIDs, Tylenol and follow up if worsening. Vital Signs Vital signs: Initial Vital Signs Temperature 99.2 F 09/09/24 13:06 Temperature Source Temporal Artery Scan 09/09/24 13:06 Pulse Rate 80 09/09/24 13:06 Respiratory Rate 16 09/09/24 13:06 Blood Pressure 129/83 09/09/24 13:06 Blood Pressure Mean 98 09/09/24 13:06 Blood Pressure Position Sitting 09/09/24 13:06 Pulse Oximetry 99 09/09/24 13:06 Oxygen Delivery Method Room Air 09/09/24 13:06 Vital Signs Temperature 99.2 F 09/09/24 13:06 Pulse Rate 80 09/09/24 13:06 Respiratory Rate 16 09/09/24 13:06 Blood Pressure 129/83 09/09/24 13:06 Pulse Oximetry 99 09/09/24 13:06 Oxygen Delivery Method Room Air 09/09/24 13:06 Temperature 99.2 F 09/09/24 13:06 Pulse Rate 61 09/09/24 14:15 Respiratory Rate 12 09/09/24 14:18 Blood Pressure 116/76 09/09/24 14:02 Pulse Oximetry 98 09/09/24 14:15 Oxygen Delivery Method Room Air 09/09/24 13:06 MDM - Chest Pain Lab Data Attestation: I reviewed the patient's lab results. Labs: Lab Results 09/09/24 09/09/24 Range/Units 11:30 13:42 WBC 4.22 L (4.50-11.00) K/uL RBC 4.81 (4.00-5.20) m/uL Hgb 13.6 (12.0-16.0) gm/dL Hct 42.4 (33.0-51.0) % MCV 88 (80-100) fL MCH 28 (26-34) pg MCHC 32 (32-36) gm/dL RDW Coeff of Jessica 12.9 (11.5-15.5) % Plt Count 180 (140-440) K/uL Neut % (Auto) 39.4 L (42.0-72.0) % Lymph % (Auto) 39.8 (20-44) % [place] % (Auto) 9.2 (0.0-11.0) % Eos % (Auto) 10.7 H (0.0-7.0) % Baso % (Auto) 0.9 (0.0-3.0) % Neut # (Auto) 1.70 (1.7-7.0) K/uL Lymph # (Auto) 1.70 (0.90-2.90) K/uL [place] # (Auto) 0.40 (0.00-0.90) K/UL Eos # (Auto) 0.50 (0.00-0.50) K/uL Baso # (Auto) 0.00 (0.00-0.30) K/uL Abs Immat Gran (auto) 0.00 (0.00-0.30) K/uL Imm/Tot Granulo (auto) 0.0 % D-Dimer Quant (PE/DVT) 0.25 (0.00-0.50) ug/ml VBG pH 7.420 (7.32-7.43) VBG pCO2 43 (40-50) mmHG VBG pO2 39.7 (25-47) mmHG VBG HCO3 28 (21-28) mmol/L Sodium 142 (135-149) mmol/L Potassium 3.9 (3.6-5.1) mmol/L Chloride 106 (96-114) mmol/L Carbon Dioxide 26 (20-32) mmol/L Anion Gap 10 (7-15) mEq/L BUN 15 (5-24) mg/dL Creatinine 0.9 (0.5-1.5) mg/dL Estimated Creat Clear 70.11 Estimated GFR 84 ml/min Glucose 93 (60-115) mg/dL Lactate 1.1 (0.5-1.9) mmol/L Calcium 9.3 (8.4-10.6) mg/dL Total Bilirubin 0.6 (0.1-1.5) mg/dL AST 28 (12-35) U/L ALT 17 (4-35) U/L Alkaline Phosphatase 46 (40-150) U/L Troponin I < 0.01 (0.01-0.04) ng/mL C-Reactive Protein 0.6 (0.5-1.0) mg/dL NT-Pro-B Natriuret Pep < 20 pg/mL Total Protein 7.8 (6.0-8.3) g/dL Albumin 4.8 (3.3-5.0) g/dL Lab Acknowledgement Test Added Imaging Data Chest x-ray: Attestation: I have reviewed the pertinent imaging results. Radiologist's impression: Patient: SAI DONALDSON Facility:?[facility] Patient ID:?[id number] Site Patient ID:?[id number]. Site :?[id number] Study:?XRay-Chest Portable one view-09/09/2024 2:09:11 PM Ordering Physician:Nimesh Monique Final Report: INDICATION: Recent cough. Pleuritic chest pain. TECHNIQUE: AP portable seated chest x-ray. COMPARISON: Two view chest x-ray March 12, 2017. FINDINGS: Clear lungs. Normal thorax. No pleural effusion. Normal heart size, pulmonary vascularity, and included skeleton. IMPRESSION: Normal chest. No change other than technique. Dictated by Bowen Moreira MD @ 09/09/2024 2:31:39 PM (Electronic Signature) ECG Data Attestation: I personally reviewed and interpreted this ECG as follows: (Normal sinus rhythm with sinus arrhythmia, 72 beats per minute. Poor R-wave progression anterior precordial leads with flipped T-waves with out ST segment change.) ECG interpretation date: 09/09/24 ECG interpretation time: 13:25 Prior ECG tracings: not available for review Discharge Plan Discharge Clinical Impression: Chest pain Qualifiers: Chest pain type: unspecified Qualified Code(s): R07.9 - Chest pain, unspecified Patient Disposition: Home, Self-Care Condition: Stable Instructions: Chest Pain (ED) Additional Instructions: Recommend taking ibuprofen 600 mg 3 to 4 times a day, at least do it scheduled 3 times a day for the next 5 days and see if this does alleviate some of your sym ptoms. Can consider doing Tylenol 1000 mg 3 times a day as well. Continue to monitor, if you are having increasing symptoms, develops fever, have shortness of breath or difficulty breathing, worsening symptoms, sense of any heart rhythm disturbance or palpitations with this, other concerns develop, do need you to return for further evaluation. Activity Level: No Restrictions Prescriptions: No Action No Known Home Medications Follow Up/Referrals: Anisa Zaldivar MD [Primary Care Provider] - Stand Alone Forms: [employer] Info Instructions
[2024-09-09 13:36] LABS: HCO3 VBG 28 mmol/L (21-28); Lactate* 1.1 mmol/L (0.5-1.9); PCO2 VBG 43 mmHG (40-50); PO2 VBG 39.7 mmHG (25-47)
[2024-09-09 13:37] LABS: Basophils Percent Auto 0.9 % (0.0-3.0); Eosinophils Percent Auto 10.7 % (0.0-7.0); Hematocrit 42.4 % (33.0-51.0); Hemoglobin* 13.6 gm/dL (12.0-16.0); Lymphocytes Percent Auto 39.8 % (20-44); Mean Corpuscular HGB Conc 32 gm/dL (32-36); Mean Corpuscular Hemoglobin 28 pg (26-34); Mean Corpuscular Volume 88 fL (80-100); Monocytes Percent Auto 9.2 % (0.0-11.0); Neutrophils Percent Auto 39.4 % (42.0-72.0); Platelet Count* 180 K/uL (140-440); RDW Coefficient of Variation % 12.9 % (11.5-15.5); Red Blood Count 4.81 m/uL (4.00-5.20); White Blood Count* 4.22 K/uL (4.50-11.00)
--- NOTE | 2024-09-09 13:42 | CRLHL7_ITS ---
For Patients: As a result of the Century Cures Act, medical imaging exams and procedure reports are released immediately into your electronic medical record. You may view this report before your referring provider. If you have questions, please contact your health care provider. INDICATION: Recent cough. Pleuritic chest pain. TECHNIQUE: AP portable seated chest x-ray. COMPARISON: Two view chest x-ray March 12, 2017. FINDINGS: Clear lungs. Normal thorax. No pleural effusion. Normal heart size, pulmonary vascularity, and included skeleton. IMPRESSION: Normal chest. No change other than technique. Dictated by Bowen Moreira MD @ 09/09/2024 2:31:39 PM (Electronically Signed)
[2024-09-09 13:43] LABS: Slide Review Reflex No
[2024-09-09 13:57] LABS: Albumin* 4.8 g/dL (3.3-5.0); Chloride* 106 mmol/L (96-114); Potassium* 3.9 mmol/L (3.6-5.1); Sodium* 142 mmol/L (135-149)
[2024-09-09 14:00] LABS: Alanine Aminotransferase* 17 U/L (4-35); Alkaline Phosphatase* 46 U/L (40-150); Anion Gap 10 mEq/L (7-15); Aspartate Amino Transferase* 28 U/L (12-35); Bilirubin Total* 0.6 mg/dL (0.1-1.5); Blood Urea Nitrogen* 15 mg/dL (5-24); Carbon Dioxide* 26 mmol/L (20-32); Creatinine* 0.9 mg/dL (0.5-1.5); Est. Creatinine Clearance* 70.11; Estimated Glomerular Filt Rate 84 ml/min; Total Protein* 7.8 g/dL (6.0-8.3)
[2024-09-09 14:01] LABS: Calcium* 9.3 mg/dL (8.4-10.6); Glucose* 93 mg/dL (60-115)
--- OUTSIDE RECORDS SUMMARY | 2024-09-09 14:02 | XMS_ITS | Clinical Summary ---
Author Organization [employer] [facility] Address [address] [place] [address] Care Team Providers Care Senior Publications Specialist Name Role Phone Anisa Zaldivar MD Primary [...] delivery 06/03/2020 01/12/2024 delivery delivered 06/02/2020 01/12/2024 [facility] Supervision of high-risk 01/06/2020 01/12/2024 Overview [...] child H/O C/S for placenta previa at 23y7m--0/2018. (baby went to NICU for respiratory issues) Pt desires TOLAC, will need to transfer to provider that does H/O viral pericarditis during first (can't find records) Anxiety (on Zoloft) BMI = 24 LAST GROWTH: Next: 01/09/20 10/16/19 (6w3d) REFERRING PHYSICIAN/PHONE/LAST UPDATE: Dr. Anisa Zaldivar, [facility] [phone] Primary MD approves scheduling of recommended ultrasounds/testing: Yes SPECIALISTS/CONSULTS: Gyro Compass Tester: Dr. Kylah Weber, [facility] 05/2016 Include: Specialty MD Clinic [...] folic acid, PNV, zoloft Preferred delivery location: [place] (wants to do TOLAC) PLAN OF CARE: [...] at [address] Anisa Zaldivar [facility] due to wanting TOLAC Grant, Son Rogerio (Jun 2017) Hx of at 36 weeks for previa. Traumatic experience with child transferred to NICU from [facility] and her being without her baby or [...] Department Care Team Description 09/09/2024 Nurse Triage [facility] [address] [place] [address] Anisa Zaldivar MD Chest Pain from Last [...] SAB 7w0 d N Demis e Delivery Location:[facility] 06/2017 36w 4d 2.98 kg (6 lb 9 oz) M CS-LTr anv Livin g Complications:Placenta Previ a Delivery Location:[facility] Comments:placenta prev ia, C/S, PPH, baby transferred [...] Procedure Name Priority Date/Time Associated Diagnosis Comments ANALYTICAL RESEARCH PROGRAM MANAGER THIN PREP PAP SCREEN IMAGED Routine 08/07/2020 2:45 PM CDT Screening for cervical cancer ANTI HIV 1/2 Routine 10/09/2019 8:54 AM CDT Encounter for supervision of other normal in first trimester (HC) ANTI HCV Routine 10/09/2019 8:54 AM CDT Encounter for supervision of other normal in first trimester (HC) from Last 3 Months or Most Recently Relevant to Health Maintenance Results * ANALYTICAL RESEARCH PROGRAM MANAGER THIN PREP PAP SCREEN IMAGED [[id number]] (08/07/2020 2:45 PM CDT) Case Report Gynecologic Cytology Report Case: [id number] Authorizing Provider: Anisa Zaldivar MD Collected: 08/07/2020 1445 Ordering Location: [facility] Received: 08/07/2020 1525 Clinic First Screen: Christiane Stevens Specimen: ANALYTICAL RESEARCH PROGRAM MANAGER ThinPrep Vial Screening, Cervical 08/19/2020 3:37 PM CDT [facility] INTERPRETATION/ RESULT NEGATIVE FOR INTRAEPITHELIAL LESION OR MALIGNANCY (NIL) (none) 08/19/2020 3:37 PM CDT [facility] at 1537 CDT SPECIMEN ADEQUACY Satisfactory for evaluation Endocervical component present 08/19/2020 3:37 PM CDT [facility] HPV REQUEST HPV and PAP 08/19/2020 3:37 PM CDT [facility] Date of LMP n/a 08/19/2020 3:37 PM CDT [facility] Last Pap Date unknown 08/19/2020 3:37 PM CDT [facility] Last Pap Result First Pap/Unknown 3:37 PM CDT [facility] Abnormal Pap or [place] Bx in last 5 years No 08/19/2020 3:37 PM CDT [facility] Menstrual Status 08/19/2020 3:37 PM CDT [facility] [place] Bx Done Today No 08/19/2020 3:37 PM CDT [facility] Additional Information None given 08/19/2020 3:37 PM CDT [facility] Comment: Cytology is screened at [facility] - [address], [place] [address] and [facility] - [address], [place] [address] and [facility] - [address] [place] [address] Interpreted at [facility] - [address], [place] [address] Automated Review Successful 08/19/2020 3:37 PM CDT [facility] Comment:Specimen processed s uccessfully by automated executive officer device, ThinPrep Imaging System, [employer] ANCILLARY TESTING ANALYTICAL RESEARCH PROGRAM MANAGER HPV Ordered, Please see separate report 08/19/2020 3:37 PM CDT [facility] Note The pap test is a [...] and malignant lesions. 08/19/2020 3:37 PM CDT [facility] Other (Cervical) Non-Blood / Unknown 08/07/2020 2:45 PM CDT 08/07/2020 3:25 PM CDT us Anisa Zaldivar MD PATHOLOGY/CYTOLOGY Final Re sult [facility] [address] [place] [address], [place] * HEPATITIS C [04698.2] (10/09/2019 8:54 AM CDT) HEPATITIS C ANTIBODY Non-React sinan Non-React sinan 10/09/2019 3:11 PM CDT [facility] TRAL LABORAT[facility] Comment:Antibodies to HCV no t detected; does not exclude the possibility of exposure to HCV. Blood BLOOD SPECIMEN / Unknown Venipuncture / Unknown 10/09/2019 8:54 AM CDT 10/09/2019 8:54 AM CDT us Anisa Zaldivar MD SEND OUTS Final Resul t [facility] [address] [place] [address], * ANTI HIV 1/2 [35659.0] (10/09/2019 8:54 AM CDT) HIV-1/HIV-2 ANTIBODY Non-Reacti ve Non-Reacti ve 10/09/2019 3:14 PM CDT [facility] TRAL [facility] Comment:HIV-1 p24 and HIV-1/ HIV-2 Ab not detected. Blood BLOOD SPECIMEN / Unknown Venipuncture / Unknown 10/09/2019 8:54 AM CDT 10/09/2019 8:54 AM CDT us Anisa Zaldivar MD SEND OUTS Final Resul t [facility] [address] [place] [address], from Last 3 Months or Most Recently Relevant to Health Maintenance Insurance [facility] Advance Directives * Full Code (Latest Code [...] 8:36 AM 01/29/2016 2:37 PM Care Teams Senior Publications Specialist Relationship Specialty Start Date End Date Anisa Zaldivar MD [address] [place] [address] PCP - General Family Practice 06/11/20
--- OUTSIDE RECORDS SUMMARY | 2024-09-09 14:02 | XMS_ITS | Encounter Summary ---
Author Organization [facility] Address [address] [place] [address]. [place] [address] Care Team Providers Care Parking Station Attendant Name Role Phone Skylar Salomon CNP Primary Care Provider [phone] Neha Major MD Primary Care Provider [phone] Reason for Referral * - Closed Specialty Diagnoses / Procedures Referred By Thomas t Referred To Contact Diagnoses related condition, unspecified trimester Janes August Phone: tel: fax: Referral ID Status Reason Start Date Expiration Date Visits Re quested Visits Authorized [id number] Closed 12/23/2016 12/23/2017 1 1 Question Answer MFM Location [facility] JESSIE 08/05/2017 Ultrasound NONE US PROC Chorionic Villus Sampling(10.0-12.6 weeks GA)*MUST request Genetic Counseling MFM Issue OTHER (enter details in Comments) - Pituitary adenoma, travel to [place] risk area 5 months ago MFM Consultation (unrelated to Ultrasound findings) Yes (enter details in Comments) - Pituitary adenoma, travel to [place] risk area 5 months ago Genetic Counseling Consultation: No fax [facility] Dr Dorita Marrero [phone] Comments >> Patient may proceed with recommendations [...] where they were done to arrange for merchandise pickup/receiving associate prior to your scheduled appointment. Any new CT, MRI or other procedures ordered by your specialist must be performed at a [facility] facility or coordinated by your clinic's referral office. >> List of current medications >> This referral request >> Any documents/labs given to you for this referral Encounter Details Date Type Department Care Team (Late st Contact Info) Description 12/23/2016 Orders Only [facility] [place] [address] [facility] [address] [place] [id number] Janes[address] [place] [address] related condition, unspecified trimester (Primary Dx) Social [...] Primary documented in this encounter Care Teams Parking Station Attendant Relationship Specialty Start Date End Date Skylar Salomon CNP PCP - General 01/17/16 07/12/17 Neha Major MD [address] [place] [address] PCP - General automatic embroidery machine tender 07/13/17 documented as of this encounter
--- OUTSIDE RECORDS SUMMARY | 2024-09-09 14:02 | XMS_ITS | Clinical Summary ---
Author Organization [facility] Address [address] [place] [address]. [place] [address] Care Team Providers Care Senior Linux Administrator Name Role Phone Neha Major MD Primary Care Provider [phone] Allergies Active Allergy Reactions Criticality Noted Date [...] 37.2 C (99 F) 07/16/2017 1:21 PM KEYBOARD INSTRUMENT REPAIRER Respiratory Rate 18 07/16/2017 10:51 AM KEYBOARD INSTRUMENT REPAIRER Oxygen Saturation 100% 01/17/2016 7:50 PM CDT Inhaled Oxygen Concentration - - Weight 62.1 kg (137 lb) 08/23/2017 9:40 AM CDT Height 160 cm (5' 3) 08/23/2017 9:40 AM CDT Body Mass Index 24.27 08/23/2017 9:40 AM CDT Plan of Treatment Not on file Insurance INDIVIDUAL INDIVIDUAL Care Teams Senior Linux Administrator Relationship Specialty Start Date End Date Neha Major MD [address] [place] [address] PCP - General capital markets specialist 07/13/17
--- OUTSIDE RECORDS SUMMARY | 2024-09-09 14:02 | XMS_ITS | Clinical Summary ---
Author Organization [facility] Address [address] [place] [address] Care Team Providers Care Shift Mechanic Name Role Phone Skylar Salomon Diana ABREU, WEBLOGIC ADMINISTRATOR Primary Care Provider Source Comments You are receiving this document as you are listed as the primary care provider,follow-up provider, or the patient has been referred to you for consultation.This is in compliance with the Medicare and[facility] Hospitalca[facility] EHR Incentive Program,which states Providers who transition their patient to another setting of careor provider of care or refers their patient to another provider of care shouldprovide summary care record for each transition of care or referral. [employer] Allergies Active Allergy Reactions Criticality Noted Date Comments Doxycycline Breathing Difficulty High 10/16/2015 Shellfish Allergy Anaphylaxis,Itching High 6 Medications ALBUterol sulfate HFA 108 (90 BASE) MCG/ACT inhaler Inhale 2 Puffs as needed for Wheezing (Inhale 2 puffs as needed for Wheezing.). Reported on 06/15/2016 10/16/2015 Active fluticasone (FLONASE) 50 MCG/ACT nasal solutionIndicat ions:Hyperprola ctinemia (HRC),PCOS (polycystic ovarian syndrome) (HRC) 1 [place]. 06/08/2016 Act sinan spironolactone (ALDACTONE) 50 MG [...] Comments Blood Pressure 116/78 06/15/2016 11:12 AM DITCHING MACHINE OPERATOR Pulse 80 06/15/2016 11:12 AM DITCHING MACHINE OPERATOR Temperature 36.8 C (98.3 F) 04/06/2016 8:27 AM DITCHING MACHINE OPERATOR Respiratory Rate 18 04/06/2016 8:27 AM DITCHING MACHINE OPERATOR Oxygen Saturation 96% 04/06/2016 8:27 AM DITCHING MACHINE OPERATOR Inhaled Oxygen Concentration - - Weight 54.5 kg (120 lb 3.2 oz) 06/15/2016 11:12 AM DITCHING MACHINE OPERATOR Height 160 cm (5' 3) 06/15/2016 11:12 AM DITCHING MACHINE OPERATOR Body Mass Index 21.29 06/15/2016 11:12 AM DITCHING MACHINE OPERATOR Plan of Treatment Health Maintenance Due Date [...] CDT FINAL GYNECOLOGICAL CYTOLOGY REPORT Pathology #: [id number] Date Obtained: 11/18/2015 Date Received: 11/19/2015 INTERPRETATION/RESULTS: [...] and false-negative reports may occur. Performed at [facility], [address] [place] [id number] Lachelle Stearns MD LAB_1 Final Re sult HP CONVERSION from Last 3 Months or Most Recently Relevant to Health Maintenance Insurance [employer] FULLY INSURED * Guarantor: Cleo Alegre Account Type Relation to Patient Date of Phone Billing Address Personal/Family Self 1985 [address] [place] [address] [employer] Care Teams Shift Mechanic Relationship Specialty Start Date End Date Skylar Salomon, CONTRACT ADMINISTRATION MANAGER, WEBLOGIC ADMINISTRATOR [id number] [place] [address] PCP - General 10/29/15
--- OUTSIDE RECORDS SUMMARY | 2024-09-09 14:02 | XMS_ITS | Encounter Summary ---
Author Organization [facility] Address [address] [place] [address]. [place] [address] Care Team Providers Care Arc And Gas Welder Name Role Phone Skylar Salomon CNP Primary Care Provider [phone] Neha Major MD Primary Care Provider [phone] Encounter Details Date Type Department Care Team (Late st Contact Info) Description 03/01/2017 PRE VISIT [facility] [address] [place] [id number] Dorota Carcamo, LEAH Social History Tobacco Use [...] on filedocumented in this encounter Care Teams Arc And Gas Welder Relationship Specialty Start Date End Date Skylar Salomon CNP PCP - General 01/17/16 07/12/17 Neha Major MD [address] [place] [address] PCP - General labor service representative 07/13/17 documented as of this encounter
--- OUTSIDE RECORDS SUMMARY | 2024-09-09 14:02 | XMS_ITS | Encounter Summary ---
Author Organization [facility] Address [address] [place] [address]. [place] [address] Care Team Providers Care Scratcher Tender Name Role Phone Skylar Salomon CNP Primary Care Provider [phone] Neha Major MD Primary Care Provider [phone] Encounter Details Date Type Department Care Team (Late st Contact Info) Description 12/26/2016 Care Coordination [facility] [address] [address] Stephanie Mcclellan RN Social History Tobacco Use [...] on filedocumented in this encounter Care Teams Scratcher Tender Relationship Specialty Start Date End Date Skylar Salomon CNP PCP - General 01/17/16 07/12/17 Neha Major MD [address] [place] [address] PCP - General front clerk 07/13/17 documented as of this encounter
[2024-09-09 14:03] LABS: C Reactive Protein* 0.6 mg/dL (0.5-1.0)
[2024-09-09 14:18] LABS: NT Pro B Type NatriureticPept* < 20 pg/mL; Troponin I* < 0.01 ng/mL (0.01-0.04)
[2024-09-09 14:25] LABS: D Dimer Quantitative* 0.25 ug/ml (0.00-0.50)
== END 2024-09-09 15:33 | disposition home or self-care (01) ==
PROVIDERS: Emergency Provider Family Medicine; PCP Family Medicine
DX: R07.9 Chest pain, unspecified (principal)
CPT/HCPCS: 36415; 71045; 80053; 82803; 83605; 83880; 84484; 85025; 85379; 86140; 93005; 94761; 99284